=== PATIENT | male | born 1955 | race Caucasian/White ===

== ENCOUNTER → 2016-08-13 | Outpatient (CLI) | payer BC ==
[~2016-08-13] MED LIST: ANT25 PO; METO25TA3 PO; SYN88 PO
[2016-08-13 11:27] LABS: THYROID STIMULATING HORMONE 4.9 uIu/ml (0.300-4.500)
== END | disposition home or self-care (01) ==
LOC: C.LABBC 08:31
PROVIDERS: ATTEND Nurse Practitioner Family
DX: E03.9 Hypothyroidism, unspecified (principal); E78.1 Pure hyperglyceridemia

== ENCOUNTER → 2016-08-24 | Outpatient (CLI) | payer BC ==
--- NOTE | 2016-08-24 10:34 | DIAGNOSTIC IMAGING REPORT ---
THYROID ULTRASOUND CLINICAL HISTORY: Hypothyroidism. Solitary thyroid nodule. COMPARISON STUDY: None. TECHNIQUE: Sonography of the thyroid gland was performed. FINDINGS: The right thyroid lobe measures 3.8 x 1.8 x 1.1 cm and the left lobe measures 3.8 x 1.8 x 1.3 cm. The gland is homogeneous. There is a 0.4 cm cystic left lobe nodule that likely reflects a colloid cyst. This has benign imaging characteristics. This is a peripheral echogenic focus. IMPRESSION: 1. 0.4 cm left lobe lesion suggestive of a colloid cyst. This has benign imaging characteristics. 2. Otherwise, normal thyroid ultrasound. Electronically signed by: Santy Florez M.D. 08/24/2016 10:33 AM Dictated Date/Time: 08/24/2016 10:27 AM
[2016-08-24 14:33] LABS: THYROID STIMULATING HORMONE 4.07 uIu/ml (0.300-4.500)
[2016-08-26 16:53] LABS: MICROSOMAL AB <1 IU/ML (<9); THYROGLOBULIN 13.7 NG/ML (2.8-40.9)
== END | disposition home or self-care (01) ==
PROVIDERS: ATTEND Nurse Practitioner Family
DX: E04.1 Nontoxic single thyroid nodule (principal); E03.9 Hypothyroidism, unspecified; Z11.59 Encounter for screening for other viral diseases

== ENCOUNTER → 2016-11-17 | Outpatient (CLI) | payer BC | END | disposition home or self-care (01) | LOC: C.LABBC 09:02 | PROVIDERS: ATTEND Nurse Practitioner Family | DX: E03.9 Hypothyroidism, unspecified (principal) ==

== ENCOUNTER → 2017-02-28 | Outpatient (CLI) | payer BC ==
[2017-02-28 11:32] LABS: BASO % 0.1 %; BASO ABS # 0.01 K/uL (0-0.2); COMPLETE YES; EOS % 1.2 %; HEMATOCRIT 47.1 % (42-52); IG% 0.6 %; LYMPH ABS # 1.96 K/uL (1.2-3.4); MEAN CELL VOLUME 89.9 fL (80-100); MEAN CORPUSCULAR HGB CONC 33.3 g/dl (32-36); MEAN PLATELET VOLUME 10.3 fL (7.4-10.4); MONO % 7.9 %; NEUT % 61.2 %; PLATELET COUNT 148 K/uL (130-400); RED BLOOD COUNT 5.24 M/uL (4.7-6.1); WHITE BLOOD COUNT 6.75 K/uL (4.8-10.8)
[2017-02-28 11:57] LABS: BLOOD UREA NITROGEN 20 mg/dl (7-18); BUN/CREATININE RATIO 16.3 (10-20); CALCIUM 9.5 mg/dl (8.5-10.1); CARBON DIOXIDE 27 mmol/L (21-32); CHLORIDE 105 mmol/L (98-107); CHOLESTEROL 145 mg/dl (0-200); GLUCOSE 96 mg/dl (70-99); POTASSIUM 4.3 mmol/L (3.5-5.1); SODIUM 138 mmol/L (136-145)
[2017-02-28 12:05] LABS: ALB/GLOB RATIO 1.1 (0.9-2); ALKALINE PHOSPHATASE 31 U/L (45-117); ALT/SGPT 24 U/L (12-78); AST/SGOT 19 U/L (15-37); HDL CHOLESTEROL 45 mg/dl; LDL CHOLESTEROL CALCULATED 70 mg/dl; TRIGLYCERIDES 148 mg/dl (0-150); VERY LOW DENSITY LIPOPROT CALC 30 mg/dl
[2017-02-28 12:06] LABS: CHOLESTEROL/HDL RATIO 3.2
== END | disposition home or self-care (01) ==
LOC: C.LABBC 08:27
PROVIDERS: ATTEND Nurse Practitioner Family
DX: I48.91 Unspecified atrial fibrillation (principal); E03.9 Hypothyroidism, unspecified; E78.1 Pure hyperglyceridemia

== ENCOUNTER → 2017-05-18 | Day surgery (SDC) | payer BC ==
[2017-05-10 13:25] VITALS: BMI 24.0
[~2017-05-18] VITALS: Ht 182.9 cm; Wt 79.5 kg
[~2017-05-18] MED LIST changes: -ANT25 PO; +ASPCH81X PO; +LEVO88TA3 PO; +LIDOCAINE HCL 2% 2 ML VIAL (20MG/ML) ONE; +PROPOFOL IV EMULSION 10 MG/ML 20 ML VIAL IV ONE; +SODIUM CHLORIDE 0.9% 500ML 500 ML IV ONE; -SYN88 PO
[2017-05-18 09:57] VITALS: Ht 182.9 cm; Wt 79.5 kg
--- NOTE | 2017-05-18 10:14 | Endo History and Physical ---
History & Physical Date of Service: May 18, 2017. Chief Complaint: SCREENING FOR COLON CANCER Referring Physician: KOFI TIMMONS NP History of Present Illness 62 yo CM who presents for screening colonoscopy. Past Surgical History Hx Cardiac Surgery: No Hx Internal Defibrillator: No Hx Pacemaker: No Hx Abdominal Surgery: No Hx of Implantable Prosthesis: No Hx Post-Op Nausea and Vomiting: No Hx Cancer Surgery: Yes (BCC/SKIN CANCER REMOVAL ) Hx Thoracic Surgery: No Hx Orthopedic: No Hx Urinary Tract Surgery: No Family History None Social History Smoking Status: Never Smoker Hx Substance Use: No Hx Alcohol Use: No Allergies Coded Allergies: Penicillins (Verified Allergy, Unknown, DIARRHEA, 05/10/17) Current Medications Reported Home Medications Medications Dose Route/Sig Max Daily Dose Days Date Category Aspirin Chewable (Aspirin) 81 Mg Chew 81 Mg PO QPM 05/10/17 Reported Levothyroxine Sodium 88 Mcg Tab 1 Tab PO QAM 05/10/17 Reported Toprol-Xl (Metoprolol Succinate) 25 Mg Tabcr 0.5 Tab PO QAM 05/10/17 Reported Vital Signs Weight (Kilograms): 79.55 Height (Feet): 6 Height (Inches): 0 Date Time Temp Pulse Resp B/P (MAP) Pulse Ox O2 Delivery O2 Flow Rate FiO2 05/18/17 10:04 36.8 78 16 154/89 (110) 97 Room Air Physical Exam General Appearance: WD/WN, no apparent distress Respiratory/Chest: Auscultation: breath sounds normal Cardiovascular: Heart Auscultation: RRR Abdomen: Bowel Sounds: normal Inspection & Palpation: soft, non-distended, no tenderness, guarding & rebound Assessment and Plan Assessment: 62 yo CM who presents for screening colonoscopy. Plan: Proceed with colonoscopy.
--- NOTE | 2017-05-18 10:38 | GI REPORT ---
Procedure Date: 05/18/2017 9:59 AM Procedure: Colonoscopy Indications: Screening for colorectal malignant neoplasm Medicines: Monitored Anesthesia Care Complications: No immediate complications. Estimated Blood Loss: Estimated blood loss: none. Procedure: Pre-Anesthesia Assessment: - Prior to the procedure, a History and Physical was performed, and patient medications and allergies were reviewed. The patient's tolerance of previous anesthesia was also reviewed. The risks and benefits of the procedure and the sedation options and risks were discussed with the patient. All questions were answered, and informed consent was obtained. Prior Anticoagulants: The patient has taken aspirin, last dose was 1 day prior to procedure. ASA Grade Assessment: II - A patient with mild systemic disease. After reviewing the risks and benefits, the patient was deemed in satisfactory condition to undergo the procedure. After I obtained informed consent, the scope was passed under direct vision. Throughout the procedure, the patient's blood pressure, pulse, and oxygen saturations were monitored continuously. The scope was introduced through the anus and advanced to the terminal ileum. The colonoscopy was performed without difficulty. The patient tolerated the procedure well. The quality of the bowel preparation was good. The terminal ileum, ileocecal valve, appendiceal orifice, and rectum were photographed. Findings: The perianal and digital rectal examinations were normal. A 6 mm polyp was found in the ascending colon. The polyp was sessile. The polyp was removed with a hot snare. Resection and retrieval were complete. The exam was otherwise without abnormality. Impression: - One 6 mm polyp in the ascending colon, removed with a hot snare. Resected and retrieved. - The examination was otherwise normal. Recommendation: - Resume previous diet. - Continue present medications. - Repeat colonoscopy for surveillance based on pathology results. - Return to primary care physician as previously scheduled. Sony Gonzalez DO 05/18/2017 10:37:42 AM This report has been signed electronically. Note Initiated On: 05/18/2017 9:59 AM I attest to the content of the Intraoperative Record and orders documented therein, exceptions below
--- NOTE | 2017-05-18 10:38 | Discharge Instructions ---
Endoscopy Patient Instructions Date / Procedure(s) Performed May 18, 2017. Colonoscopy Allergy Information Coded Allergies: Penicillins (Verified Allergy, Unknown, DIARRHEA, 05/10/17) Discharge Date / Findings May 18, 2017. Colon polyp Medication Instructions Stopped Medication(s): USES ASPIRIN-LAST DOSE 05/17/17 OK to resume all medications today as prescribed Reported Home Medications Medications Dose Route/Sig Max Daily Dose Days Date Category Aspirin Chewable (Aspirin) 81 Mg Chew 81 Mg PO QPM 05/10/17 Reported Levothyroxine Sodium 88 Mcg Tab 1 Tab PO QAM 05/10/17 Reported Toprol-Xl (Metoprolol Succinate) 25 Mg Tabcr 0.5 Tab PO QAM 05/10/17 Reported Provider Instructions Activity Restrictions - No exercising or heavy lifting for 24 hours. - Do not drink alcohol the day of the procedure. - Do not drive a car or operate machinery until the day after the procedure. - Do not make any important decisions or sign important papers in 24 hours after the procedure. Following Day: - Return to full activity which may include returning to work/school. Diet Start your diet with liquids and light foods (jello, soup, juice, toast). Then eat your usual diet if not nauseated. Treatment For Common After Affects For mild abdominal pain, bloating, or excessive gas: - Rest - Eat lightly - Lie on right side Follow-Up Information Follow-up with KOFI TIMMONS NP as scheduled Anesthesia Information What You Should Know You have had a procedure that required some medicine to reduce anxiety and discomfort. This treatment is called moderate sedation. After receiving the treatment, you may be sleepy, but you will be able to breathe on your own. The effects of the treatment may last for several hours. Follow these instructions along with Activity/Diet recommendations noted above: * Do NOT do anything where dizziness or clumsiness would be dangerous. * Rest quietly at home today, then you can be up and about tomorrow. * Have a responsible person stay with you the rest of today. * You may have had an I.V. today. If so, you may take the dressing off later today. Recommendations Call your doctor if: * Trouble breathing * Continuous vomiting for more than 24 hours * Temperature above 101 degrees * Severe abdominal pain or bloating * Pain not relieved by pain medicine ordered * There is increased drainage or redness from any incision * A large amount of rectal bleeding greater than 2-3 tablespoons. (If you had a polyp/s removed or have hemorrhoids, a small amount of blood - from the rectum is to be expected.) * You have any unanswered questions or concerns. IN THE EVENT OF A SERIOUS EMERGENCY, GO TO THE NEAREST EMERGENCY ROOM Your discharge instructions were prepared by provider Sony Gonzalez. Patient Instructions Signature Page Jack Rodriguez Patient (or Guardian) Signature/Date: I have read and understand the instructions given to me by my caregivers. Caregiver/RN/Doctor Signature/Date: The above-named patient and/or guardian has received patient instructions on this date. + Original Patient Signature Page (only) stays with chart. Please make copy for patient.
[2017-05-18 11:10] VITALS: BP 123/77; PULSE 58; O2SAT 98
--- NOTE | 2017-05-18 11:10 | Anesthesiology Progress Note ---
Anesthesia Post Op Note Date & Time May 18, 2017 at 11:09 Vital Signs Pain Intensity: 0 Vital Signs Past 12 Hours Date Time Temp Pulse Resp B/P (MAP) Pulse Ox O2 Delivery O2 Flow Rate FiO2 05/18/17 10:55 60 16 122/77 (92) 98 Room Air 05/18/17 10:40 66 16 98/56 (70) 96 Room Air 05/18/17 10:04 36.8 78 16 154/89 (110) 97 Room Air Notes Mental Status: alert / awake / arousable, participated in evaluation Pt Amnestic to Procedure: Yes Nausea / Vomiting: adequately controlled Pain: adequately controlled Airway Patency, RR, SpO2: stable & adequate BP & HR: stable & adequate Hydration State: stable & adequate Anesthetic Complications: no major complications apparent
== END | disposition home or self-care (01) ==
LOC: C.GI 09:28
PROVIDERS: ATTEND Internal Medicine
DX: Z12.11 Encounter for screening for malignant neoplasm of colon (principal); D12.2 Benign neoplasm of ascending colon; Z85.820 Personal history of malignant melanoma of skin; Z88.0 Allergy status to penicillin; Z79.82 Long term (current) use of aspirin; Z90.89 Acquired absence of other organs; E03.9 Hypothyroidism, unspecified; Z86.79 Personal history of other diseases of the circulatory system

== ENCOUNTER 2022-06-23 17:52 | Observation (INO) ==
[2022-06-23] MEDS ORDERED: STAT IV Infusion **Titration per Protocol STA (18:11)
[2022-06-23] MEDS ORDERED: dilTIAZem HCl 5 MG/ML 5 ML VIAL IV STA ×2 (18:11→19:37)
[2022-06-23] MEDS ORDERED: dilTIAZem HCL 125 MG in DEXTROSE 5% 100 ML IV SCH (18:15)
--- NOTE | 2022-06-23 18:34 | Emergency Department Note ---
Impression & Plan Atrial fibrillation with RVR, Palpitations ED Provider Note NAME: DAVIAN BURNETTE AGE: 67 SEX: M : 1955 ARRIVES VIA: Walk-In INFORMANT: Patient ED PROVIDER(S): Rao Cameron DO CHIEF COMPLAINT: Palpitations HPI: Patient is a 67-year-old male with a past medical history of A. fib, hyperlipidemia, hypothyroidism, and elevated PSA the presents the emergency room 5 PM tonight and he noticed his heart racing. He had some fluttering in his chest. He denies any headache or change in vision. No chest pain did have some mild shortness of breath. No belly pain, nausea, vomiting, or diarrhea. No dysuria, urgency, or frequency. No other exacerbating or remitting factors. He notes this feels like his previous episodes of A. fib. He is not currently on a blood thinner other than aspirin. He has been taking his metoprolol and has not missed any doses. PAST MEDICAL HISTORY:See Below PAST SURGICAL HISTORY:See Below FAMILY HISTORY:See Below SOCIAL HISTORY:See Below HOME MEDICATIONS:See Below ALLERGIES:See Below VITALS:See Below PHYSICAL EXAMINATION: GENERAL: Sitting up in bed, alert, well appearing, well nourished, no distress, non-toxic EYE EXAM: normal conjunctiva. OROPHARYNX: no exudate, no erythema, lips, buccal mucosa, and tongue normal and mucous membranes are moist NECK: supple, no nuchal rigidity, no adenopathy, non-tender LUNGS: Clear to auscultation. Normal chest wall mechanics HEART: Tachycardic and irregularly irregular, S1 normal and S2 normal ABDOMEN: abdomen soft, non-tender, normo-active bowel sounds, no masses, no rebound or guarding. UPPER EXTREMITIES: upper extremities are grossly normal. LOWER EXTREMITIES: No pitting edema. NEURO EXAM: Normal sensorium, cranial nerves II-XII grossly intact, normal speech, no gross weakness of arms, no gross weakness of legs. MEDICAL DECISION MAKING: Patient is a 67-year-old male who presents the ER with past medical history of A. fib not anticoagulated for palpitations. Started today. IV was established blood work was obtained. Labs show no significant leukocytosis or anemia. Mild elevation in glucose at 125. LFTs bilirubin was unremarkable. Troponin was negative. TSH and lipase was unremarkable. COVID was negative. External records were reviewed. Chest x-ray was unremarkable. EKG consistent with A. fib with RVR. He was placed on a Cardizem drip. This was titrated up to 10. Heart rate was still in the 120s. He was rebolused with another 10 mg of Cardi zem. He was updated at bedside. Discussed with the hospitalist for further evaluation and treatment Dr. Taco King. Triage Nursing notes reviewed. Limited review of prior medical records performed Vital Signs: reviewed and remarkable for tachy Differential diagnosis: Cardiac ischemia, aortic dissection, pulmonary embolism, pneumothorax, pneu monia, pericarditis, myocarditis, esophageal rupture, GERD, cholecystitis, pancreatitis, musculoskeletal, as well as other pathologies. ER treatment provided: See below Diagnostics interpreted by me include EKG and cardiac monitoring as listed below: -Cardiac Monitoring: An order was placed for continuous cardiac monitoring. The monitor shows a rate of 143 with Afib rhythm. -ECG: A. fib rate of 143 Normal axis No PVCs T wave inversion in the inferior leads with ST depressions in the inferior leads and lateral leads QTC 487 -Laboratory studies:Interpreted by me as stated above in MDM and shown below. Imaging studies: Xrays: As interpreted by me: Portable AP upright 1 view of the chest unremarkable CTs show: none Consultation(s): As described in [facility] Procedures:none Critical Care: I have personally spent 31 minutes of critical care time in the direct management of this patient. This includes bedside care, interpretation of diagnostic studies, and testing, discussion with consultants, patient, and family members, and other required patient management activities. This 31 minutes is in excess of all separately billable procedures. Past Med/Surg History Medical History Afib hx- x 3 episodes 15 yrs apart- follows Dr Fragoso, last visit 2-3 mos ago, has not had an episode in "a couple yrs" controlled w/ metoprolol Benign prostatic hyperplasia with urinary obstruction Family history of lung cancer Brother [place] syndrome Hx of basal cell carcinoma Hypertriglyceridemia Hypothyroid Solitary thyroid nodule Surgical History History of tonsillectomy History of wisdom tooth extraction Hx of colonoscopy Status post Mohs surgery Family History Sister Breast cancer Mother Myocardial infarction Basal cell carcinoma (BCC) Cardiac disorder Lymphoma Father Cardiac disorder Denies family history of Ovarian cancer Prostate cancer Colorectal cancer Stroke Social History Smoking Status: Never smoker Second Hand Exposure: Yes; Do You Dip or Chew Tobacco: No; Tobacco Cessation Education Requested by Patient: No Hx Alcohol Use: No Hx Substance Use: No Preferred Language: Nepali Communication Ability: Effective Visual Impairment: No Limitations Hearing Ability: Normal Coke Inspector Required: No Beliefs That Will Affect Care: None marital status: Current Living Situation: Spouse current occupational status: retired Other Information That Helps Us Care for You: No Feels Safe at Home: Yes Safety Concerns: Feels Safe At This Time Childhood Exposure to Second-Hand Smoke: No Dental Care, Regularly: Yes Physical Activity Frequency: 3-4 Times per Week Seatbelt Use: always Sunscreen Use: Yes Do you think of yourself as: straight/heterosexual Assistive Devices: None Allergies Allergies Allergy/AdvReac Type Severity Reaction Status Date / Time Penicillins AdvReac Intermediate DIARRHEA Verified 06/23/22 19:20 Home Meds Home Medications Medication Instructions Recorded Confirmed aspirin 81 mg tablet,delayed 81 mg PO QAM 03/02/19 06/23/22 release levothyroxine 100 mcg tablet 100 mcg PO QAM 06/23/22 06/23/22 [id number] acid 0.4 1 tab PO QAM 06/23/22 06/23/22 mg-lycopene 300 mcg-lutein 250 mcg tablet (Centrum Silver) omega-3 fatty acids 1,000 mg 1,000 mg PO QAM 06/23/22 06/23/22 capsule Previous Rx's Medication Instructions Recorded metoprolol succinate 25 mg 12.5 mg PO BID #90 tabs 01/19/22 tablet,extended release 24 hr (Toprol XL) Results & Data (ED) Vital Signs Vital Signs - 24 hr 06/23/22 18:00 06/23/22 18:11 06/23/22 18:44 Temperature 36.8 C Temperature Source Temporal Artery Scan Pulse Rate 143 H Respiratory Rate 18 Respiratory Effort / Characteristics Non-Labored Spontaneous Respiratory Depth Normal Respiratory Pattern Regular Blood Pressure 136/91 Blood Pressure Mean 106 Pulse Oximetry 96 96 Oxygen Delivery Method Room Air Room Air Room Air Sepsis Recent Fever Within 48 Hours No Sepsis New/Unexplained Change in Mental Status No Sepsis Action Taken by Nursing No Action Required 06/23/22 19:00 06/23/22 19:01 06/23/22 19:01 Temperature Temperature Source Pulse Rate 129 H 132 H Respiratory Rate 10 L 15 Respiratory Effort / Characteristics Respiratory Depth Respiratory Pattern Blood Pressure 123/89 Blood Pressure Mean 100 Pulse Oximetry Oxygen Delivery Method Sepsis Recent Fever Within 48 Hours Sepsis New/Unexplained Change in Mental Status Sepsis Action Taken by Nursing 06/23/22 19:10 06/23/22 19:10 Temperature Temperature Source Pulse Rate 138 H Respiratory Rate 20 Respiratory Effort / Characteristics Respiratory Depth Respiratory Pattern Blood Pressure 155/127 H Blood Pressure Mean 136 Pulse Oximetry Oxygen Delivery Method Sepsis Recent Fever Within 48 Hours Sepsis New/Unexplained Change in Mental Status Sepsis Action Taken by Nursing Laboratory Data 06/23/22 18:20 06/23/22 18:20 Lab Results 06/23/22 06/23/22 06/23/22 Range/Units 18:20 18:20 18:45 WBC 8.43 (4.8-10.8) K/ul RBC 5.21 (4.70-6.10) M/uL Hgb 16.1 (14.0-18.0) g/dl Hct 45.6 (42.0-52.0) % MCV 87.5 (80.0-100.0) fL MCH 30.9 (25.0-34.0) pg MCHC 35.3 (32.0-36.0) g/dL RDW Std Deviation 39.3 (36.4-46.3) fL RDW Coeff of Meryl 12.2 (11.5-14.5) % Plt Count 142 (130-400) K/uL MPV 10.1 (9.4-12.4) fL Immature Gran % (Auto) 0.4 % Neut % (Auto) 67.1 % Lymph % (Auto) 21.7 % Charles % (Auto) 9.6 % Eos % (Auto) 0.8 % Baso % (Auto) 0.4 % Neut # (Auto) 5.66 (1.40-6.50) K/uL Lymph # (Auto) 1.83 (1.2-3.4) K/uL Charles # (Auto) 0.81 H (0.11-0.59) K/uL Eos # (Auto) 0.07 (0-0.50) K/uL Baso # (Auto) 0.03 (0-0.2) K/uL Immature Gran # (Auto) 0.03 (0.01-0.20) K/uL Sodium 139 (136-145) mmol/L Potassium 3.8 (3.5-5.1) mmol/L Chloride 105 (98-107) mmol/L Carbon Dioxide 24 (21-32) mmol/L Anion Gap 10 (3-11) BUN 26 H (6-23) mg/dl Creatinine 1.26 (0.6-1.4) mg/dl Est Cr Clr Drug Dosing 60.7 ml/min Est GFR ( Amer) 67.0 ml/min Est GFR (Non-Af Amer) 57.8 ml/min BUN/Creatinine Ratio 20.6 H (10-20) Glucose 125 H (70-99(Fasting)) mg/dl Calcium 9.5 (8.5-10.1) mg/dl Phosphorus 2.9 (2.5-4.9) mg/dl Magnesium 2.2 (1.7-2.4) mg/dl Total Bilirubin 0.6 (0.2-1.0) mg/dl AST 20 (13-39) U/L ALT 18 (7-52) U/L Alkaline Phosphatase 24 L (34-104) U/L Troponin I High Sens 9.2 (0-20) pg/ml Total Protein 7.1 (6.0-8.3) gm/dl Albumin 4.5 (3.4-5.0) gm/dl Globulin 2.6 (2.5-4.0) gm/dl Albumin/Globulin Ratio 1.7 (0.9-2) Lipase 46 (11-82) U/L TSH (0.300-4.500) uIu/ml SARS-CoV-2, RNA, NAAT NEGATIVE (NEGATIVE) 06/23/22 Range/Units 19:47 WBC (4.8-10.8) K/ul RBC (4.70-6.10) M/uL Hgb (14.0-18.0) g/dl Hct (42.0-52.0) % MCV (80.0-100.0) fL MCH (25.0-34.0) pg MCHC (32.0-36.0) g/dL RDW Std Deviation (36.4-46.3) fL RDW Coeff of Meryl (11.5-14.5) % Plt Count (130-400) K/uL MPV (9.4-12.4) fL Immature Gran % (Auto) % Neut % (Auto) % Lymph % (Auto) % Charles % (Auto) % Eos % (Auto) % Baso % (Auto) % Neut # (Auto) (1.40-6.50) K/uL Lymph # (Auto) (1.2-3.4) K/uL Charles # (Auto) (0.11-0.59) K/uL Eos # (Auto) (0-0.50) K/uL Baso # (Auto) (0-0.2) K/uL Immature Gran # (Auto) (0.01-0.20) K/uL Sodium (136-145) mmol/L Potassium (3.5-5.1) mmol/L Chloride (98-107) mmol/L Carbon Dioxide (21-32) mmol/L Anion Gap (3-11) BUN (6-23) mg/dl Creatinine (0.6-1.4) mg/dl Est Cr Clr Drug Dosing ml/min Est GFR ( Amer) ml/min Est GFR (Non-Af Amer) ml/min BUN/Creatinine Ratio (10-20) Glucose (70-99(Fasting)) mg/dl Calcium (8.5-10.1) mg/dl Phosphorus (2.5-4.9) mg/dl Magnesium (1.7-2.4) mg/dl Total Bilirubin (0.2-1.0) mg/dl AST (13-39) U/L ALT (7-52) U/L Alkaline Phosphatase (34-104) U/L Troponin I High Sens (0-20) pg/ml Total Protein (6.0-8.3) gm/dl Albumin (3.4-5.0) gm/dl Globulin (2.5-4.0) gm/dl Albumin/Globulin Ratio (0.9-2) Lipase (11-82) U/L TSH 4.130 (0.300-4.500) uIu/ml SARS-CoV-2, RNA, NAAT (NEGATIVE) Administered Medications Diltiazem HCl 125 mg/ Dextrose 125 mls @ 10 mls/hr IV .[id number] [facility]; Protocol Stop: 07/23/22 18:14 Last Titration: 06/23/22 19:14 Dose: 10 mg/hr, 10 mls/hr Documented By: SHAUN Co-signed By: ALVARO Admin: 06/23/22 18:31 Dose: 5 mg/hr, 5 mls/hr Documented By: SANDI Co-signed By: CYRIL Discontinued Medications Diltiazem HCl (Diltiazem Hcl 5 Mg/Ml 5 Ml Vial) 10 mg IV NOW STA Stop: 06/23/22 18:12 Last Admin: 06/23/22 18:31 Dose: 10 mg Documented By: SANDI Co-signed By: CYRIL Diltiazem HCl (Diltiazem Hcl 5 Mg/Ml 5 Ml Vial) 10 mg IV NOW STA Stop: 06/23/22 19:38 Last Admin: 06/23/22 20:18 Dose: 10 mg Documented By: SHAUN Co-signed By: AM Magnesium Sulfate/Dextrose (Magnesium Sulfate / D5w) 1 gm in 100 mls @ 100 mls/hr IV NOW STA Stop: 06/23/22 20:40 Last Infusion: 06/23/22 21:26 Dose: 0 mls/hr Documented By: Admin: 06/23/22 20:20 Dose: 100 mls/hr Documented By: SHAUN Miscellaneous (Stat Iv Infusion Titration Per Protocol) 1 each N/A NOW STA Stop: 06/23/22 18:12 Last Admin: 06/23/22 19:14 Dose: Not Given Documented By: SHAUN Imaging Data Radiologist's Impression: Chest X-Ray 06/23/22 18:11 XR chest 1V portable HISTORY: 67 years-old Male Chest pain, nonspecific acute chest pain COMPARISON: Chest radiograph 02/10/2018 TECHNIQUE: AP view of the chest FINDINGS: Cardiomediastinal and hilar silhouettes are within normal limits. No pneumothor ax, pleural effusion, airspace consolidation or overt pulmonary edema. Degenerative changes of the shoulders and spine. IMPRESSION: No acute process. ACT 112: Negative or not required by law. The above report was generated using voice recognition software. It may contain grammatical, syntax or spelling errors. Electronically signed by: Bunny Maki M.D. 06/23/2022 6:58 PM Discharge Plan Visit Data Chief Complaint: Tachycardia Stated Complaint: A FIB, ED Provider: Rao Cameron Discharge Problem: Atrial fibrillation with RVR, Palpitations Patient Disposition: Admitted As Inpatient Discharge Instructions Interventions: ED Discharge Assessment Last Done: 06/23/22 20:55
[2022-06-23 18:35] LABS: Hematocrit (blood only) 45.6 % (42.0-52.0); Hemoglobin 16.1 g/dl (14.0-18.0); Mean Corpuscular Hemoglobin 30.9 pg (25.0-34.0); Mean Corpuscular Hgb Conc 35.3 g/dL (32.0-36.0); Mean Corpuscular Volume 87.5 fL (80.0-100.0); Mean Platelet Volume 10.1 fL (9.4-12.4); Platelet Count 142 K/uL (130-400); RDW Coefficient of Variation 12.2 % (11.5-14.5); RDW Standard Deviation 39.3 fL (36.4-46.3); Red Blood Count 5.21 M/uL (4.70-6.10); White Blood Count 8.43 K/ul (4.8-10.8)
[2022-06-23 18:49] LABS: Albumin Globulin Ratio 1.7 (0.9-2); Albumin Level 4.5 gm/dl (3.4-5.0); BUN Creatinine Ratio 20.6 (10-20); Bilirubin,Total 0.6 mg/dl (0.2-1.0); Calcium 9.5 mg/dl (8.5-10.1); Creatinine Clr Calc Pharmacy 60.7 ml/min; Est GFR (Non-African American) 57.8 ml/min; Globulin 2.6 gm/dl (2.5-4.0); Potassium 3.8 mmol/L (3.5-5.1); Total Protein 7.1 gm/dl (6.0-8.3)
[2022-06-23 18:54] LABS: Basophils # (auto) 0.03 K/uL (0-0.2); Basophils % (auto) 0.4 %; Eosinophils # (auto) 0.07 K/uL (0-0.50); Eosinophils % (auto) 0.8 %; Immature Granulocytes # (auto) 0.03 K/uL (0.01-0.20); Immature Granulocytes % (auto) 0.4 %; Lymphocytes # (auto) 1.83 K/uL (1.2-3.4); Lymphocytes % (auto) 21.7 %; Monocytes # (auto) 0.81 K/uL (0.11-0.59); Monocytes % (auto) 9.6 %; Neutrophils # (auto) 5.66 K/uL (1.40-6.50); Neutrophils % (auto) 67.1 %
[2022-06-23 18:55] LABS: Troponin I High Sensitivity 9.2 pg/ml (0-20)
--- NOTE | 2022-06-23 19:00 | XRay Report ---
XR chest 1V portable HISTORY: 67 years-old Male Chest pain, nonspecific acute chest pain COMPARISON: Chest radiograph 02/10/2018 TECHNIQUE: AP view of the chest FINDINGS: Cardiomediastinal and hilar silhouettes are within normal limits. No pneumothorax, pleural effusion, airspace consolidation or overt pulmonary edema. Degenerative changes of the shoulders and spine. IMPRESSION: No acute process. ACT 112: Negative or not required by law. The above report was generated using voice recognition software. It may contain grammatical, syntax o r spelling errors. Electronically signed by: Bunny Maki M.D. 06/23/2022 6:58 PM
[2022-06-23] MEDS ORDERED: MAGNESIUM SULFATE / D5W 1 GM/100 ML BAG IV STA (19:41)
--- NOTE | 2022-06-23 19:49 | History & Physical Report ---
Date of Service June 23, 2022 Assessment & Plan (1) Atrial fibrillation with RVR: Plan: -Admit to the PCU on tele -The patient is currently afebrile, hemodynamically stable, and stable on RA -Patient developed afib RVR this evening and has been unable to convert back to NSR at this time -Patient has been asymptomatic with a negative high sensitivity troponin -Currently on the Diltiazem drip running at 10 mg/hr, will continue for now -Will increase his dose of metoprolol Succinate from 12.5 mg BID to 25 mg BID and give a dose now -Adding on a magnesium, phosphorus, and TSH -Will give 1mg IV magnesium STAT and follow up with admission labs -[facility] as he follows with Dr. Fragoso in order to furhter discuss anticoagulation and any needed medication changes -SCDs and Xarelto for DVT PPX -AM CBC and BMP -Heart healthy diet (2) Hypothyroid: Plan: -Will follow-up with TSH level ordered on admission -Continue levothyroxine Plan The patient was discussed with Dr. Godinez at the time of the admmission History of Present Illness Chief Complaint: Tachycardia Primary Care Provider: Torrey Stringer III, KHUSHI Jack is a 67 year old male with a PMH significant for paroxysmal afib (not on anticoagulation), Hypothyroidism, BPH, Gilbert's syndrome, hypertriglyceridemia, who presented to the [facility] ED on 06/23/22 with a chief complaint of tachycardia. In the ED the patient was found to be afebrile, hemodynamically stable, stable on RA, but tachycardic with HR's in the 140's. Labs including CBC, CMP, high sensitivity troponin, and covid screen were WNL. He was noted to have a blood glucose of 125. Chest xray was read as "no acute process". His ECG showed the patient to be in afib RVR. The patient was initially given a 10 mg IV diltiazem bolus but he remained in RVR and was started on a Diltiazem drip at 5mg/hr. Prior to admission the patient's diltiazem drip was increased to 10 mg/hr due to continued rates in the 130's-140's. At the time of the exam the patient was resting comfortably in bed in no acute distress with his sitting bedside. He states that this is only the 4th time in over 20+ years that he has been in afib. Normally, when he goes into afib it will only last a few seconds-minutes. He is still on 12.5 mg PO metoprolol succinate without recent dosing changes. He states that he shoveled snow around 2pm today without issue. He was resting in him home around 5 pm when he felt palpitations similar to his previous episodes of afib. I waited a few minutes but his palpitations persisted, he did take his HS dose of metoprolol prior to leaving for the ED. Since his RVR started he has been asymptomatic including lightheadedness, dizziness, chest pain, or SOB. He denies recent fevers, chills, headache, changes in vision, hearing, taste, and smell, abdominal pain, nausea, vomiting, diarrhea, dysuria, hematuria, and recent trauma. Previously he declined long-term anticoagulation as his father had many issues while on Warfarin towards the end of his life. However, the patient does carry a bottle of xarelto with him to take if he experiences an episode of afib. The patient did not take his xarelto prior to coming to the ED today. I spoke with he and his regarding starting Xarelto tonight and having further discussions with continuing on discharge, they are both in agreement with this plan. The patient wishes to be a full code and his would make medical decisions for him if he could not make them himself. Please refer to Dr. Godinez's attestation for any changes to the treatment Allergies Allergy/AdvReac Type Severity Reaction Status Date / Time Penicillins AdvReac Intermediate DIARRHEA Verified 06/23/22 19:20 Home Medications Medication Instructions Recorded Confirmed Type aspirin 81 mg tablet,delayed 81 mg PO QAM 03/02/19 06/23/22 History release metoprolol succinate 25 mg 12.5 mg PO BID #90 tabs 01/19/22 06/23/22 Rx tablet,extended release 24 hr (Toprol XL) levothyroxine 100 mcg tablet 100 mcg PO QAM 06/23/22 06/23/22 History dxyjabnz-jhg-cxvgw acid 0.4 1 tab PO QAM 06/23/22 06/23/22 History mg-lycopene 300 mcg-lutein 250 mcg tablet (Centrum Silver) omega-3 fatty acids 1,000 mg 1,000 mg PO QAM 06/23/22 06/23/22 History capsule Past Med/Surg History Medical History Afib hx- x 3 episodes 15 yrs apart- follows Dr Fragoso, last visit 2-3 mos ago, has not had an episode in "a couple yrs" controlled w/ metoprolol Benign prostatic hyperplasia with urinary obstruction Family history of lung cancer Brother [place] syndrome Hx of basal cell carcinoma Hypertriglyceridemia Hypothyroid Solitary thyroid nodule Surgical History History of tonsillectomy History of wisdom tooth extraction Hx of colonoscopy Status post Mohs surgery Family History Sister Breast cancer Mother Myocardial infarction Basal cell carcinoma (BCC) Cardiac disorder Lymphoma Father Cardiac disorder Denies family history of Ovarian cancer Prostate cancer Colorectal cancer Stroke Social History Smoking Status: Never smoker Second Hand Exposure: Yes; Do You Dip or Chew Tobacco: No; Tobacco Cessation Education Requested by Patient: No Hx Alcohol Use: No Hx Substance Use: No Preferred Language: Mosotho Communication Ability: Effective Visual Impairment: No Limitations Hearing Ability: Normal Trolley Operator Required: No Beliefs That Will Affect Care: None marital status: Current Living Situation: Spouse current occupational status: retired Other Information That Helps Us Care for You: No Feels Safe at Home: Yes Safety Concerns: Feels Safe At This Time Childhood Exposure to Second-Hand Smoke: No Dental Care, Regularly: Yes Physical Activity Frequency: 3-4 Times per Week Seatbelt Use: always Sunscreen Use: Yes Do you think of yourself as: straight/heterosexual Assistive Devices: None Review of Systems Review of Systems: Denies current fever, chills, headache, changes in vision, hearing, taste, and smell, chest pain, SOB, cough, abdominal pain, nausea, vomiting, diarrhea, hematemesis, melena, dysuria, hematuria, and recent falls. All systems have been reviewed and are otherwise negative. Physical Exam Physical Exam: Physical Exam: General: In no acute distress, stated age, well-nourished, good hygiene HEENT: Normocephalic, atraumatic, no scleral icterus, pupils around round, symmetrical, and reactive to light, moist mucus membranes, trachea midline, no thyromegaly Chest/Pulm: No respiratory distress, symmetrical chest expansion, clear breath sounds throughout Cardiac: tachycardic rate, irregular rhythm,, no murmurs noted Abdomen: Negative for ascites and bruising, normoactive bowel sounds, soft, non-tender to palpation throughout Musculoskeletal: Symmetrical and without signs of acute trauma, upper and lower extremities with full ROM, no atrophy, spasticity, or flaccidity Extremities: Radial, dorsalis pedis, and posterior tibial pulses are intact and symmetrical, no edema noted in the BL LE's Skin: Warm, dry, no rashes , lesions, or scars noted Neuro: Alert and oriented to person, place, month, year, and president, no focal defects, CN II-XII tested and intact, finger to nose test negative, no tremors noted Psych: No acute distress, calm and cooperative during the exam Results & Data Results & Data ([facility]) Vital Signs (Past 12 Hours) Vital Signs Temp Pulse Resp BP Pulse Ox O2 Del Method 06/23/22 19:10 155/127 H 06/23/22 19:10 138 H 20 06/23/22 19:01 132 H 15 06/23/22 19:01 123/89 06/23/22 19:00 129 H 10 L 06/23/22 18:44 96 Room Air 06/23/22 18:11 Room Air 06/23/22 18:00 36.8 C 143 H 18 136/91 96 Room Air Laboratory Results Abnormal lab results 06/23/22 06/23/22 Range/Units 18:20 18:20 [place] # (Auto) 0.81 H (0.11-0.59) K/uL BUN 26 H (6-23) mg/dl BUN/Creatinine Ratio 20.6 H (10-20) Glucose 125 H (70-99(Fasting)) mg/dl Alkaline Phosphatase 24 L (34-104) U/L Diagnostic Findings Chest X-Ray 06/23/22 18:11 XR chest 1V portable HISTORY: 67 years-old Male Chest pain, nonspecific acute chest pain COMPARISON: Chest radiograph 02/10/2018 TECHNIQUE: AP view of the chest FINDINGS: Cardiomediastinal and hilar silhouettes are within normal limits. No pneumothorax, pleural effusion, airspace consolidation or overt pulmonary edema. Degenerative changes of the shoulders and spine. IMPRESSION: No acute process. ACT 112: Negative or not required by law. The above report was generated using voice recognition software. It may contain grammatical, syntax or spelling errors. Electronically signed by: Bunny Maki M.D. 06/23/2022 6:58 PM ECG Additional Comments: Atrial fibrillation with rapid ventricular response Marked ST abnormality, possible inferior subendocardial injury Abnormal ECG When compared with ECG of 11-FEB-2018 10:10, Atrial fibrillation has replaced Sinus rhythm Vent. rate has increased BY [address] more depressed Lateral leads T wave inversion now evident in Inferior leads T wave inversion no longer evident in Anterolateral leads 25mm/s10mm/[id number] 241CID: 10Unc Code Status & VTE Plan Code Status Full code VTE Prophylaxis Plan VTE Prophylaxis will be ordered: Yes Supervising Physician Co-Signing Physician Notes Patient seen and examined, chart reviewed, case discussed with RAFAEL Dawn and I agree with the assessment and plan as documented above. In brief, patient is a 67yo male with history of PAF presenting in AF with RVR. Patient started on Diltiazem drip in the ER. On exam he is afebrile, in AF on monitor, BP is stable Skin - intact, no rash HEENT- NC/AT, PERRL, Neck supple Heart - +S1/S2, irregularly irregular Lungs CTA Abd - +BS, soft, NT/ND Ext - warm, well perfused Labs and images reviewed Assessment/Plan -Admit to PCU -Continue Diltiazem drip for now -Increase Metoprolol to 25mg po BID -Anticoagulation with Xarelto for now - patient will consider ongoing anticoagulation -Remainder of plan as above PG Care Time/CCT Total # of Minutes Spent Total Time Spent with Patient: Total time spent is greater than 50% in coordination of care (as documented) at patient's floor/unit and/or counseling patient: Coding [place] [address] INT INP/OBS CARE 3/75MIN Patient Type Established Medical Decision Making High Complexity Diagnoses Atrial fibrillation with RVR I48.91 Hypothyroid E03.9
[2022-06-23 20:19] LABS: Magnesium 2.2 mg/dl (1.7-2.4); Phosphorus 2.9 mg/dl (2.5-4.9)
[2022-06-23] MEDS ORDERED: ACETAMINOPHEN 325 MG TAB PO PRN (21:16)
[2022-06-23] MEDS: RIVAROXABAN 20 MG TAB PO SCH (22:04)
[2022-06-23] MEDS: METOPROLOL SUCC 25MG EXT REL TAB PO SCH (22:04)
[2022-06-24] MEDS ORDERED: LEVOTHYROXINE SODIUM 100 MCG TABLET PO SCH (06:30)
[2022-06-24 06:40] LABS: Hematocrit (blood only) 45.9 % (42.0-52.0); Hemoglobin 16.1 g/dl (14.0-18.0); Mean Corpuscular Hemoglobin 31.1 pg (25.0-34.0); Mean Corpuscular Hgb Conc 35.1 g/dL (32.0-36.0); Mean Corpuscular Volume 88.6 fL (80.0-100.0); Mean Platelet Volume 10.2 fL (9.4-12.4); Platelet Count 143 K/uL (130-400); RDW Coefficient of Variation 12.3 % (11.5-14.5); RDW Standard Deviation 40.2 fL (36.4-46.3); Red Blood Count 5.18 M/uL (4.70-6.10); White Blood Count 9.26 K/ul (4.8-10.8)
[2022-06-24 06:50] LABS: BUN Creatinine Ratio 17.2 (10-20); Calcium 9.3 mg/dl (8.5-10.1); Est GFR (African American) 74.1 ml/min; Est GFR (Non-African American) 63.9 ml/min; Magnesium 2.5 mg/dl (1.7-2.4); Potassium 4.2 mmol/L (3.5-5.1)
[2022-06-24 07:25] LABS: INR 1.2 (0.9-1.1); Prothrombin Time 12.6 Seconds (9.0-12.0)
[2022-06-24] MEDS: RIVAROXABAN 20 MG TAB PO SCH (08:05)
[2022-06-24] MEDS ORDERED: ASPIRIN 81 MG ECTAB PO SCH (09:00)
--- NOTE | 2022-06-24 09:05 | Electrocardiogram Report ---
Test Reason : Blood Pressure : / mmHG Vent. Rate : 143 BPM Atrial Rate : 178 BPM P-R Int : 000 ms QRS Dur : 102 ms QT Int : 316 ms P-R-T Axes : 000 075 -41 degrees QTc Int : 487 ms Atrial fibrillation with rapid ventricular response Marked ST abnormality, possible inferior subendocardial injury Abnormal ECG When compared with ECG of 11-FEB-2018 10:10, Atrial fibrillation has replaced Sinus rhythm Vent. rate has increased BY [address] more depressed Lateral leads T wave inversion now evident in Inferior leads T wave inversion no longer evident in Anterolateral leads Confirmed by Maikel Chester ([id number]) on 06/24/2022 9:05:25 AM Referred By: REFERRED SELF Confirmed By:Aneesh Chester
[2022-06-24] MEDS: METOPROLOL SUCC 25MG EXT REL TAB PO SCH (10:43)
--- NOTE | 2022-06-24 11:04 | Cardiology Consultation ---
Date of Consultation June 24, 2022 Assessment & Plan (1) Atrial fibrillation with RVR: Plan 1. Atrial fibrillation: The patient recognize that the symptoms of atrial fibrillation presented in a relatively rapid fashion to the emergency room. His symptoms resolved this morning and he appears have return to sinus rhythm. This is consistent with other episodes which are actually quite infrequent. In fact, last episode appears to have happened several years ago. Given the infrequent and well tolerated nature of his events, I did not feel he required any change in therapy. We did discuss the risks and benefits of systemic anticoagulation. It seems that his overall risk for stroke is actually quite low and his chads Vasc score would be 1. However, he seems more interested and taking a daily dose of Xarelto currently. I think he can certainly start Xarelto 20 mg daily and discuss this further with his primary wood carver hand when he is evaluated a few weeks from now. He should discontinue aspirin. History of Present Illness Reason for Consultation: Atrial fibrillation Requesting Physician: Herbert Attending Physician: Salvatore Chacon, DO History of Present Illness The patient is a 67-year-old gentleman with a history of paroxysmal atrial fibrillation who presented to the emergency room for symptoms of palpitations and tachycardia. It seems that yesterday while relaxing he got up to perform some activity and notices heart began to race. This was not associated with significant lightheadedness. There was no associated dyspnea or chest discomfort. However, based on the nature and persistence of the symptoms he presented to the emergency room for evaluation. He was discovered to have atrial fibrillation and high ventricular rate. He was given some intravenous diltiazem in and ventrally started on a diltiazem infusion. He was admitted to the hospital for observation. In general he is an active individual. He is able to walk 3 miles in 45 minutes on a routine basis. He does not describe exertional symptoms such as chest pain or dyspnea. He cannot recall any specific factors which may have precipitated his episode of atrial fibrillation. He does not drink alcohol. He has not been sick recently. He recognizes symptoms from prior episodes. He states that the last episode occurred approximately 4 years ago. This morning around 7:00 a.m. he felt like his heart returned to normal. Allergies Allergy/AdvReac Type Severity Reaction Status Date / Time Penicillins AdvReac Intermediate DIARRHEA Verified 06/23/22 19:20 Home Medications Medication Instructions Recorded Confirmed Type aspirin 81 mg tablet,delayed 81 mg PO QAM 03/02/19 06/23/22 History release metoprolol succinate 25 mg 12.5 mg PO BID #90 tabs 01/19/22 06/23/22 Rx tablet,extended release 24 hr (Toprol XL) levothyroxine 100 mcg tablet 100 mcg PO QAM 06/23/22 06/23/22 History fotgjvbq-yqw-bkxxa acid 0.4 1 tab PO QAM 06/23/22 06/23/22 History mg-lycopene 300 mcg-lutein 250 mcg tablet (Centrum Silver) omega-3 fatty acids 1,000 mg 1,000 mg PO QAM 06/23/22 06/23/22 History capsule Patient History Medical History Afib hx- x 3 episodes 15 yrs apart- follows Dr Fragoso, last visit 2-3 mos ago, has not had an episode in "a couple yrs" controlled w/ metoprolol Benign prostatic hyperplasia with urinary obstruction Family history of lung cancer Brother [place] syndrome Hx of basal cell carcinoma Hypertriglyceridemia Hypothyroid Solitary thyroid nodule Surgical History History of tonsillectomy History of wisdom tooth extraction Hx of colonoscopy Status post Mohs surgery Family History Sister Breast cancer Mother Myocardial infarction Basal cell carcinoma (BCC) Cardiac disorder Lymphoma Father Cardiac disorder Denies family history of Ovarian cancer Prostate cancer Colorectal cancer Stroke Social History Smoking Status: Never smoker Second Hand Exposure: Yes; Do You Dip or Chew Tobacco: No; Tobacco Cessation Education Requested by Patient: No Hx Alcohol Use: No Hx Substance Use: No Preferred Language: Estonian Communication Ability: Effective Visual Impairment: No Limitations Hearing Ability: Normal Equipment Planner Required: No Beliefs That Will Affect Care: None marital status: Current Living Situation: Spouse current occupational status: retired Other Information That Helps Us Care for You: No Feels Safe at Home: Yes Safety Concerns: Feels Safe At This Time Childhood Exposure to Second-Hand Smoke: No Dental Care, Regularly: Yes Physical Activity Frequency: 3-4 Times per Week Seatbelt Use: always Sunscreen Use: Yes Do you think of yourself as: straight/heterosexual Assistive Devices: None Review of Systems Review of Systems: Per HPI. No recent upper respiratory symptoms. No fevers or chills. No gastrointestinal complaints. No lower extremity edema. He did report a sense of his heart racing a little more than he would expect went changing positions on occasion. He feels this may happen a couple times per year. No presyncope or syncope. Physical Exam Physical Exam: The patient is alert and oriented. Mood and affect appeared normal. He answered all questions appropriately. HEENT: Pupils are equal and reactive to light and accommodation. Extraocular movements are intact. The sclerae are anicteric. Neuro: Cranial nerves intact Lungs: Clear to auscultation bilaterally. He has good air movement without use of accessory muscles. No rales wheezes or rhonchi. Cardiac: Heart demonstrates a regular rate and rhythm. Normal S1 and S2. No murmurs on examination. Pulses: The patient has palpable radial pulses bilaterally that are equal in intensity Extremities: There was no evidence of hypoperfusion. There is no cyanosis or clubbing. There is no edema. Skin: I did not appreciate any rashes on examination today. Results & Data ([facility]) Vital Signs (Past 12 Hours) Vital Signs Temp Pulse Resp BP Pulse Ox O2 Del Method 06/24/22 07:05 36.9 C 54 L 16 123/76 98 Room Air 06/24/22 03:49 36.8 C 67 18 104/69 97 Room Air 06/23/22 23:51 36.7 C 81 18 100/66 98 Room Air Laboratory Results Abnormal Lab Results 06/23/22 06/23/22 06/23/22 18:20 18:20 18:45 WBC 8.43 RBC 5.21 Hgb 16.1 Hct 45.6 MCV 87.5 MCH 30.9 MCHC 35.3 RDW Std Deviation 39.3 RDW Coeff of Meryl 12.2 Plt Count 142 MPV 10.1 Immature Gran % (Auto) 0.4 Neut % (Auto) 67.1 Lymph % (Auto) 21.7 [place] % (Auto) 9.6 Eos % (Auto) 0.8 Baso % (Auto) 0.4 Neut # (Auto) 5.66 Lymph # (Auto) 1.83 [place] # (Auto) 0.81 H Eos # (Auto) 0.07 Baso # (Auto) 0.03 Immature Gran # (Auto) 0.03 PT INR Sodium 139 Potassium 3.8 Chloride 105 Carbon Dioxide 24 Anion Gap 10 BUN 26 H Creatinine 1.26 Est Cr Clr Drug Dosing 60.7 Est GFR ( Amer) 67.0 Est GFR (Non-Af Amer) 57.8 BUN/Creatinine Ratio 20.6 H Glucose 125 H Calcium 9.5 Phosphorus 2.9 Magnesium 2.2 Total Bilirubin 0.6 AST 20 ALT 18 Alkaline Phosphatase 24 L Troponin I High Sens 9.2 Total Protein 7.1 Albumin 4.5 Globulin 2.6 Albumin/Globulin Ratio 1.7 Lipase 46 TSH SARS-CoV-2, RNA, NAAT NEGATIVE 06/23/22 06/24/22 06/24/22 19:47 05:40 05:40 WBC 9.26 RBC 5.18 Hgb 16.1 Hct 45.9 MCV 88.6 MCH 31.1 MCHC 35.1 RDW Std Deviation 40.2 RDW Coeff of Meryl 12.3 Plt Count 143 MPV 10.2 Immature Gran % (Auto) Neut % (Auto) Lymph % (Auto) [place] % (Auto) Eos % (Auto) Baso % (Auto) Neut # (Auto) Lymph # (Auto) [place] # (Auto) Eos # (Auto) Baso # (Auto) Immature Gran # (Auto) PT 12.6 H INR 1.2 H Sodium Potassium Chloride Carbon Dioxide Anion Gap BUN Creatinine Est Cr Clr Drug Dosing Est GFR ( Amer) Est GFR (Non-Af Amer) BUN/Creatinine Ratio Glucose Calcium Phosphorus Magnesium Total Bilirubin AST ALT Alkaline Phosphatase Troponin I High Sens Total Protein Albumin Globulin Albumin/Globulin Ratio Lipase TSH 4.130 SARS-CoV-2, RNA, NAAT 06/24/22 05:40 WBC RBC Hgb Hct MCV MCH MCHC RDW Std Deviation RDW Coeff of Meryl Plt Count MPV Immature Gran % (Auto) Neut % (Auto) Lymph % (Auto) [place] % (Auto) Eos % (Auto) Baso % (Auto) Neut # (Auto) Lymph # (Auto) [place] # (Auto) Eos # (Auto) Baso # (Auto) Immature Gran # (Auto) PT INR Sodium 140 Potassium 4.2 Chloride 106 Carbon Dioxide 29 Anion Gap 5 BUN 20 Creatinine 1.16 Est Cr Clr Drug Dosing 66.0 Est GFR ( Amer) 74.1 Est GFR (Non-Af Amer) 63.9 BUN/Creatinine Ratio 17.2 Glucose 104 H Calcium 9.3 Phosphorus Magnesium 2.5 H Total Bilirubin AST ALT Alkaline Phosphatase Troponin I High Sens Total Protein Albumin Globulin Albumin/Globulin Ratio Lipase TSH SARS-CoV-2, RNA, NAAT Diagnostic Findings Echocardiogram performed 02/11/2018: Normal LV systolic function with ejection fraction of 65-70%. Normal wall motion. Borderline LVH. No significant v alvular heart disease. Chest x-ray obtained the time admission not reveal any acute cardiopulmonary process. PG Care Time/CCT Total # of Minutes Spent Total Time Spent with Patient: Total time spent is greater than 50% in coordination of care (as documented) at patient's floor/unit and/or counseling patient: Coding Level of Care Code 69796 INT INP/OBS CARE 3/75MIN Diagnoses Atrial fibrillation with RVR I48.91
--- NOTE | 2022-06-24 12:12 | Med Student Discharge Summary ---
Date of Service June 24, 2022 Admission HPI Per Admitting Provider Jack is a 67 year old male with a PMH significant for paroxysmal afib (not on anticoagulation), Hypothyroidism, BPH, Gilbert's syndrome, hypertriglyceridemia, who presented to the [facility] ED on 06/23/22 with a chief c omplaint of tachycardia. In the ED the patient was found to be afebrile, hemodynamically stable, stable on RA, but tachycardic with HR's in the 140's. Labs including CBC, CMP, high sensitivity troponin, and covid screen were WNL. He was noted to have a blood glucose of 125. Chest xray was read as "no acute process". His ECG showed the patient to be in afib RVR. The patient was initially given a 10 mg IV diltiazem bolus but he remained in RVR and was started on a Diltiazem drip at 5mg/hr. Prior to admission the patient's diltiazem drip was increased to 10 mg/hr due to continued rates in the 130's-140's. At the time of the exam the patient was resting comfortably in bed in no acute distress with his sitting bedside. He states that this is only the 4th time in over 20+ years that he has been in afib. Normally, when he goes into afib it will only last a few seconds-minutes. He is still on 12.5 mg PO metoprolol succinate without recent dosing changes. He states that he shoveled snow around 2pm today without issue. He was resting in him home around 5 pm when he felt palpitations similar to his previous episodes of afib. I waited a few minutes but his palpitations persisted, he did take his HS dose of metoprolol prior to leaving for the ED. Since his RVR started he has been asymptomatic including lightheadedness, dizziness, chest pain, or SOB. He denies recent fevers, chills, headache, changes in vision, hearing, taste, and smell, abdominal pain, nausea, vomiting, diarrhea, dysuria, hematuria, and recent trauma. Previously he declined long-term anticoagulation as his father had many issues while on Warfarin towards the end of his life. However, the patient does carry a bottle of xarelto with him to take if he experiences an episode of afib. The patient did not take his xarelto prior to coming to the ED today. I spoke with he and his regarding starting Xarelto tonight and having further discussions with continuing on discharge, they are both in agreement with this plan. The patient wishes to be a full code and his would make medical decisions for him if he could not make them himself. Please refer to Dr. Godinez's attestation for any changes to the treatment Admission Exam (Per Admitting) Respiratory normal respiratory effort, lungs clear to auscultation Cardiovascular Rate/Rhythm: regular rate and regular rhythm Heart Sounds: no click, no gallop, no murmur and no cardiac rub Extremities: no pedal edema Gastrointestinal (Abdomen) normal bowel sounds, soft, nontender, no hepatosplenomegaly Discharge Exam Respiratory normal respiratory effort, lungs clear to auscultation Cardiovascular Rate/Rhythm: regular rate and regular rhythm Heart Sounds: no click, no gallop, no murmur and no cardiac rub Extremities: no pedal edema Gastrointestinal (Abdomen) normal bowel sounds, soft, nontender, no hepatosplenomegaly Neurologic patellar DTR's 1+ bilaterally Discharge Data Consultations 06/23/22 19:38 ED Decision to Admit Stat 06/23/22 20:29 Consult Cardiology Routine Hospital Course (1) Atrial fibrillation with RVR: Pt is a 67 year old male with a PMH significant for paroxysmal afib (not on anticoagulation), Hypothyroidism, BPH, Gilbert's syndrome, hypertriglyceridemia, who presented to the [facility] ED on 06/23/22 with a chief complaint of palpitations. EKG indicated patient was in atrial fibrillation. Pt was treated with metoprolol and spontaneously converted back to sinus rhythm this morning. EKG shows atrial fibrillation has resolved and pt has since been asymptomatic. Plan Atrial Fibrillation with RVR -EKG on presentation confirmed atrial fibrillation -Metoprolol was given -Pt spontaneously converted back to normal sinus rhythm this morning while taking metoprolol -Continue metoprolol outpt -Follow up scheduled with cardiology -TSH within reference range 4.130 -Despite no clear trigger for most recent atrial fibrillation event, pt instructed to continue to avoid heavy alcohol, caffeine consumption to prevent recurrence -Despite low thrombotic risk (CHADS Vasc: 1), pt wishes to be on anticoagulation - elected for Xarelto -Start Xarelto 20 mg daily, discontinue aspirin Discharge Plan Discharge Items Patient Disposition: Home - Self-Care Reason For Visit: TACHYCARDIA Discharge Diagnosis: Atrial fibrillation Activity: Resume your previous activity Non-emergency contact: Primary Care Provider and [employer] Operator Call non-emergency contact if: you have any medication questions, your symptoms worsen and your pain is worsening Follow-up/Referrals: Salvatore Fragoso MD [Physician] - Torrey Stringer III, CRNP [Primary Care Provider] - Diet: Heart Healthy Addtl Attending Provider Instructions: You were admitted to the hospital for atrial fibrillation with excessively fast heart rate. This may have been due to dehydration, electrolyte deficiency or also exertion. We managed to reduce your heart rate to normal with medication and your atrial fibrillation became normal rhythm again this morning. A discharge summary will be sent to your primary care physician to ensure continuity of care. Please bring this discharge summary with you to your next office appointment so that your provider can review it at that time. Follow-up appointments: Make a follow-up appointment with your PCP within the next week. It is very important that you follow up with them shortly after discharge from the hospital. We also requested a follow up with cardiology with Dr. Fragoso. Medications: Your medication list has been reviewed and reconciled upon discharge to ensure accuracy and continuity of care. An updated list of all your medications is included with your hospital discharge paperwork. Please review this list closely, and make note of any changes. We sent a new medication called Xarelto. We know you've had this medication before but we refilled the script. You will take Xarelto 20 mg ONCE a day in the morning. Please take it at the same time every day. Please STOP taking aspirin. Take your medications as instructed; do not skip a dose of your medicines. Make sure all of your doctors know every medicine you are taking (including aooj-jky-rorxplo medicines, vitamins, and supplements). Call your primary care provider before taking any new medicines (including nqra-nya-akoswqo medicines, vitamins, and supplements), because some of these may interact with your current medications, or may make your symptoms worse. Tell your primary care provider if you cannot afford your medications. CONTACT YOUR PRIMARY CARE PROVIDER if you experience any of the following: Palpitations Lightheadedness Difficulty breathing Chest pain Headache Difficulty following your treatment plan, or difficulty taking medications CALL 911 OR GO TO THE EMERGENCY DEPARTMENT if you experience any of the following: Sudden, severe abdominal pain or nausea/vomiting Severe chest pain, or chest pain that radiates (moves) to your jaw or arm Sudden, severe shortness of breath or difficulty breathing Thank you for allowing us to participate in your care. Pending Studies at Discharge: No Stand-Alone Forms: My [facility] Medications and DC Order Prescriptions: New Xarelto 20 mg Tablet 20 mg PO DAILY 30 Days Qty: 30 3RF Continued metoprolol succinate [Toprol XL] 25 mg tablet extended release 24 hr 12.5 mg PO BID Qty: 90 1RF omega-3 fatty acids 1,000 mg Capsule 1,000 mg PO QAM Centrum Silver 0.4 mg-300 mcg- 250 mcg Tablet 1 tab PO QAM levothyroxine 100 mcg tablet 100 mcg PO QAM Discontinued aspirin 81 mg tablet,delayed release (DR/EC) 81 mg PO QAM Discharge Orders: Discharge Order (Routine); Ordered 06/24/22 Ordered By: Lety Tinoco Admission Data Admit Date/Time: 06/23/22 19:50 Attending Provider: Salvatore Chacon Admit Provider: Alla Godinez Primary Care Provider: Torrey Stringer III Other Providers: Alla Godinez ; Santana Randolph ; Luis Fernando Odonnell ; Salvatore Fragoso ; Kody Ludwig ; Jack Gong ; Tony Luna Jr ; Gautam Patiño ; Mel Trejo ; Yocasta Ballesteros ; Heladio Orona ; Maikel Chester ; Mohit Castro ; Rafia Collins ; Sarah Bueno ; Nicola Sidhu ; Herbert Null Henry C. ; Kody Strong V. Other Interventions: Discharge Summary Assessment (RN) Last Done: 06/24/22 12:54 Supervising Attestation I have seen and examined patient. I agree with Discharge summary as documented by Medical Student/Resident.
== END 2022-06-24 13:44 | disposition home or self-care (01) ==
LOC: 4W 17:52 → ED 17:52 → SUATTDRO 19:50 → 4W 20:55
DX: Z77.22 Contact with and (suspected) exposure to environmental tobacco smoke (acute) (chronic); E78.5 Hyperlipidemia, unspecified; E03.9 Hypothyroidism, unspecified; I48.0 Paroxysmal atrial fibrillation; E78.1 Pure hyperglyceridemia; Z20.822 Contact with and (suspected) exposure to COVID-19; Z79.82 Long term (current) use of aspirin; Z79.899 Other long term (current) drug therapy; E80.4 Gilbert syndrome; N40.0 Benign prostatic hyperplasia without lower urinary tract symptoms; Z79.890 Hormone replacement therapy